=== PATIENT | female | born 1950 | race Asian ===

== ENCOUNTER → 2016-08-08 | Outpatient (CLI) | payer OTHER ==
[~2016-08-08] MED LIST: CHLO25TA PO; CIPR500T89 PO; FISH100049 PO; FLAG500T PO; IBUP600T26 PO; NATU400T PO; NORCOTAB PO; OMEP20CA3 PO; PERC5TAB6 PO; TYLE325T5 PO; VITA500C24 PO
--- NOTE | 2016-08-08 15:20 | REPMRS ---
Patient History The patient states she has not had a clinical breast exam in over a year. Patient is postmenopausal. No known family history of cancer. Digital Mammo Screening Bilat: August 08, 2016 - Exam #: [id number] Bilateral CC and MLO view(s) were taken. Technologist: Gwen Correa, Technologist Prior study comparison: May 15, 2015, bilateral digital mammo screening bilat performed at [facility]. September 24, 2013, digital bilateral screening mammo, performed at [facility]. October 12, 2010, digital bilateral screening mammo performed at [facility]. FINDINGS: There are scattered fibroglandular densities. There has been no change in the appearance of the mammogram from the prior studies. There is a mild amount of scattered fibroglandular density which is fairly symmetric. There is no interval development of dominant mass, architectural distortion, or clustered microcalcification suggestive of malignancy. ASSESSMENT: BI-RADS/ACR category 1 mammogram. Negative. Recommendation Routine screening mammogram in 1 year (for women over age 40). This mammogram was interpreted with the aid of an FDA-approved computer-aided dectection system. Electronically Signed By: Ariel Sharma MD 08/08/16 [id number]
== END ==
LOC: M RAD 14:48
PROVIDERS: ATTEND Internal Medicine
DX: Z12.31 Encounter for screening mammogram for malignant neoplasm of breast (principal)

== ENCOUNTER → 2017-04-09 | Outpatient (REF) | payer OTHER ==
[~2017-04-09] MED LIST changes: +CIPR-249 PO; -CIPR500T89 PO; +IBUP-1022 PO; -IBUP600T26 PO; +PERC5TAB12 PO; -PERC5TAB6 PO
== END ==
LOC: M LAB REF 17:21
PROVIDERS: ATTEND Nurse Practitioner Family
DX: R30.0 Dysuria (principal)

== ENCOUNTER 2017-05-29 09:30 | Day surgery (SDC) | payer OTHER ==
[2017-05-29] MEDS: NS 1,000 ML IV (10:00)
[2017-05-29] MEDS ORDERED: PROPOFOL 200 MG/20 ML VIAL As Ordered (10:53)
[2017-05-29] MEDS ORDERED: LIDOCAINE 2% INJ 100 MG/5 ML SDV (FOR ANES.) As Ordered (10:53)
== END 2017-05-29 12:15 | disposition home or self-care (01) ==
LOC: M OPP 09:30
DX: R10.30 Lower abdominal pain, unspecified (principal); R10.2 Pelvic and perineal pain; R19.4 Change in bowel habit; Q43.8 Other specified congenital malformations of intestine; R93.3 Abnormal findings on diagnostic imaging of other parts of digestive tract; R12 Heartburn; K29.70 Gastritis, unspecified, without bleeding; K21.9 Gastro-esophageal reflux disease without esophagitis; I10 Essential (primary) hypertension; Z78.0 Asymptomatic menopausal state; Z87.442 Personal history of urinary calculi; Z88.8 Allergy status to other drugs, medicaments and biological substances; Z79.899 Other long term (current) drug therapy
CPT/HCPCS: 45378

== ENCOUNTER → 2018-06-08 | Outpatient (CLI) | payer OTHER ==
[~2018-06-08] MED LIST changes: +RANI15TA PO
--- NOTE | 2018-06-08 14:01 | REPMRS ---
Patient History The patient states she has not had a clinical breast exam in over a year. No known family history of cancer. Digital Mammo Screening Bilat: June 08, 2018 - Exam #: [id number] Bilateral CC and MLO view(s) were taken. Technologist: Gwen Correa, Technologist Prior study comparison: August 08, 2016, bilateral digital mammo screening bilat performed at [facility]. May 15, 2015, bilateral digital mammo screening bilat performed at [facility]. FINDINGS: There are scattered fibroglandular densities. There has been no change in the appearance of the mammogram from the prior studies. There is a mild amount of residual fibroglandular tissue which is fairly symmetric. There is no interval development of dominant mass, architectural distortion, or clustered microcalcification suggestive of malignancy. There are scattered, small, benign calcifications of doubtful clinical significance. There are benign bilateral arterial calcifications noted. 3-D tomosynthesis shows no additional findings. No significant changes when compared with prior studies. Assessment: BI-RADS/ACR category 2 mammogram. Benign Findings. Recommendation Routine screening mammogram in 1 year (for women over age 40). This mammogram was interpreted with the aid of an FDA-approved computer-aided dectection system. A. Negative x-ray reports should not delay biopsy if a dominant or clinically suspicious mass is present. B. Four to eight percent of cancers are not identified by mammography. C. Adenosis and dense breast may obscure an underlying neoplasm. Electronically Signed By: Ariel White MD 06/08/18 2255
== END ==
LOC: M RAD 13:03
PROVIDERS: ATTEND Family Medicine
DX: Z12.31 Encounter for screening mammogram for malignant neoplasm of breast (principal)

== ENCOUNTER → 2020-02-18 | Outpatient (CLI) | payer MEDICARE, OTHER ==
[~2020-02-18] MED LIST changes: +CHLO125TA PO; -CHLO25TA PO; +HYDR-3715 PO; -NORCOTAB PO; +OMEP1CAP73 PO; -OMEP20CA3 PO
--- NOTE | 2020-02-18 12:44 | REP ---
INDICATION: CHEST PAIN, INCIDENTAL FINDING ON XRAY FILE ROOM. 6 mm nodule at the right lung base on recent chest x-ray. COMPARISON: Comparison chest CT study July 06, 2014.. TECHNIQUE: Helical scanning is acquired and 3 mm axial images re-formatted. Coronal and sagittal MPR images and coronal MIP images are generated and reviewed. 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 There is no significant pulmonary nodule or pulmonary mass lesion. No infiltrate is seen. There is minimal linear platelike atelectasis in the lingular segment of the left upper lobe. There is linear fibrosis versus atelectasis in the right middle lobe anteriorly. Lung vences are otherwise clear. No endobronchial lesion is seen. No hilar or mediastinal mass or adenopathy is observed. Some vascular calcification is seen. There are surgical clips in the gallbladder fossa. Normal adrenal glands are seen. The visualized upper abdominal structures are unremarkable. Bone window settings show degenerative spurring in the thoracic spine. No bony destructive lesion is seen. IMPRESSION: Cardiac enlargement. Unchanged. There is no evidence of pleural effusion or pulmonary edema. There is bibasilar linear platelike atelectasis. No pulmonary nodule or mass lesion seen. Otherwise no acute disease. <Electronically signed by Ariel Sharma > 02/18/20 [id number]
== END ==
LOC: M RAD 09:36
PROVIDERS: ATTEND Family Medicine
DX: J98.11 Atelectasis (principal); R91.1 Solitary pulmonary nodule

== ENCOUNTER → 2020-03-20 | Outpatient (CLI) | payer MEDICARE, OTHER ==
--- NOTE | 2020-03-21 08:12 | REPMRS ---
Patient History The patient states she has not had a clinical breast exam in over a year. No known family history of cancer. Digital Woman Screen Mammo: March 20, 2020 - Exam #: [id number] Bilateral CC and MLO view(s) were taken. Technologist: Christie Kong, Technologist Prior study comparison: June 08, 2018, bilateral digital mammo screening bilat, performed at [facility]. August 08, 2016, bilateral digital mammo screening bilat, performed at [facility]. May 15, 2015, bilateral digital mammo screening bilat, performed at [facility]. FINDINGS: There are scattered fibroglandular densities. The Volpara volumetric breast density category is:B. There has been no change in the appearance of the mammogram from the prior studies. There is a mild amount of scattered fibroglandular density which is fairly symmetric. There is no interval development of dominant mass, architectural distortion, or grouped microcalcification suggestive of malignancy. 3-D tomosynthesis shows no additional findings. Assessment: BI-RADS/ACR category 1 mammogram. Negative Mammogram. Recommendation Routine screening mammogram of both breasts in 1 year (for women over age 40). This patient's Lifetime Breast Cancer Risk is estimated at 4.5 %. This mammogram was interpreted with the aid of an FDA-approved computer-aided dectection system. Electronically Signed By: Ariel Sharma MD 03/21/20 0812
== END ==
LOC: M WHC 15:49
PROVIDERS: ATTEND Family Medicine
DX: Z12.31 Encounter for screening mammogram for malignant neoplasm of breast (principal)

== ENCOUNTER → 2020-05-02 | Outpatient (CLI) | payer MEDICARE, OTHER ==
--- NOTE | 2020-05-02 10:29 | REP ---
INDICATION: HTN COMPARISON: None TECHNIQUE: Real time singh scale ultrasound examination using curved array transducer followed by color Doppler evaluation of the renal vasculature. FINDINGS: The bilateral kidneys are normal in contour, size, echogenicity, and reniform shape without hydronephrosis, nephrolithiasis, cystic or renal mass lesion. Right kidney measures 10.0 x 5.3 x 5.0 cm. Left kidney measures 10.7 x 4.9 x 4.5 cm. Color Doppler evaluation is essentially normal. Peak aortic velocity: 53 centimeters/second RIGHT KIDNEY Renal arterial velocity: 82 centimeters/second Renal-aortic ratio: 1.5 Intrarenal resistive indices: 0.67-0.69 Intrarenal acceleration times: 0.034-0.044 LEFT KIDNEY Renal arterial velocity: 101 centimeters/second Renal-aortic ratio: 1.9 Intrarenal resistive indices: 0.64-0.66 Intrarenal acceleration times: 0.038-0.042 IMPRESSION: 1. Kidneys appear normal. 2. Doppler interrogation without sonographic evidence for renal arterial stenosis. <Electronically signed by Victor M Rangel > 05/02/20 [id number]
== END ==
LOC: M RAD 09:15
PROVIDERS: ATTEND Internal Medicine Cardiovascular Disease
DX: I11.9 Hypertensive heart disease without heart failure (principal); M54.9 Dorsalgia, unspecified; R09.89 Other specified symptoms and signs involving the circulatory and respiratory systems

== ENCOUNTER → 2021-03-23 | Outpatient (CLI) | payer MEDICARE, OTHER ==
--- NOTE | 2021-03-23 15:30 | REPMRS ---
Patient History The patient states she has not had a clinical breast exam in over a year. Patient is postmenopausal. No known family history of cancer. Pt stated she had her Covid vaccines and her Covid booster in her right arm, She didn't know the dates of her vaccines and didn't have her vaccine card with her.Patient states no breast complaints today. Patient has signed MRS History Sheet. Digital Woman Screen Mammo: March 23, 2021 - Exam #: [id number] Bilateral CC and MLO view(s) were taken. Technologist: RT Ashley Prior study comparison: March 20, 2020, bilateral digital woman screen mammo performed at [facility]. June 08, 2018, bilateral digital mammo screening bilat, performed at [facility]. FINDINGS: There are scattered fibroglandular densities. Screening. Digital screening (2D) mammography was performed bilaterally in the CC and MLO projections. Additionally, breast tomosynthesis (3D mammography) was performed bilaterally in the CC and MLO projections. Todays exam was compared to the prior exam/exams. By history, the patient has no complaints of a palpable breast abnormality or other significant breast complaints. The breasts are unchanged in size and shape. There are no marino-soft tissue densities or spiculated masses. There is no internal architectural distortion. Once again, stable benign appearing calcifications are seen.There are no suspicious marino-calcific clusters. Skin thickening or nipple retraction is not present. IMPRESSION: BI-RADS Category 2- Benign Findings. There is no evidence of malignant alteration of the breasts. Followup examination recommended in one year. The Volpara volumetric breast density category is B, there are scattered areas of fibroglandular densities. This mammogram [facility] FDA approved computer aided detection system for mammography. The lifetime Tyrer-Cuzick score is 4.2 % Negative x-ray reports should not delay surgical consultation if a dominant or clinically suspicious mass is present. Not all breast cancers can be identified by mammography. Therefore, we recommend that you continue to perform regular breast self-examination and physical examination and then promptly contact your physician of any concerns or changes. Adenosis and dense breasts may obscure an underlying neoplasm. Assessment: BI-RADS/ACR category 2 mammogram. Benign Findings. Recommendation Routine screening mammogram of both breasts in 1 year. Electronically Signed By: Tony Lovell DO 03/23/21 [id number]
== END ==
LOC: M WHC 13:11
PROVIDERS: ATTEND Emergency Medicine
DX: Z12.31 Encounter for screening mammogram for malignant neoplasm of breast (principal); R92.1 Mammographic calcification found on diagnostic imaging of breast

== ENCOUNTER 2021-05-23 16:46 | Emergency (ER) | payer MEDICARE, OTHER ==
[~2021-05-23] VITALS: Ht 144.8 cm; Wt 56.9 kg
[2021-05-23] MEDS ORDERED: MORPHINE 4 MG/ML 1ML VIAL/SYRINGE (J2270) IV ONE (19:15)
[2021-05-23] MEDS ORDERED: NS 1,000 ML IV ONE (19:15)
[2021-05-23 19:41] LABS: BASO # 0.1 10^3/uL (0.0-0.2); EOS # 0.3 10^3/uL (0.0-0.5); EOS % 4.6 % (0.0-3.0); HEMATOCRIT 44.4 % (36.0-47.0); HEMOGLOBIN 14.9 g/dl (12.0-15.5); LYMPH # 1.9 10^3/uL (1.5-5.0); LYMPH % 27.8 % (24.0-44.0); MEAN CORPUSCULAR HEMOGLOBIN 31.4 pg (27.0-33.0); MEAN CORPUSCULAR HGB CONC 33.6 g/dl (32.0-36.5); MEAN CORPUSCULAR VOLUME 93.7 fl (80.0-96.0); MONO % 14.4 % (2.0-8.0); NEUTROPHILS # 3.6 10^3/uL (1.5-8.5); NEUTROPHILS % 51.8 % (36.0-66.0); PLATELET COUNT, AUTOMATED 328 10^3/uL (150-450); RED BLOOD COUNT 4.74 10^6/uL (4.00-5.40); WHITE BLOOD COUNT 6.9 10^3/uL (4.0-10.0)
[2021-05-23 20:23] LABS: ALBUMIN 4.1 GM/DL (3.2-5.2); ALT/SGPT 21 U/L (12-78); BILIRUBIN,TOTAL 0.3 MG/DL (0.2-1.0); BLOOD UREA NITROGEN 17 MG/DL (7-18); CALCIUM LEVEL 9.3 MG/DL (8.8-10.2); CARBON DIOXIDE LEVEL 30 MEQ/L (21-32); CHLORIDE LEVEL 107 MEQ/L (98-107); CREATININE FOR GFR 0.72 MG/DL (0.55-1.30); GLOMERULAR FILTRATION RATE > 60.0 (>45); GLUCOSE, FASTING 119 MG/DL (70-100); LIPASE 114 U/L (73-393); POTASSIUM SERUM 3.9 MEQ/L (3.5-5.1); SODIUM LEVEL 140 MEQ/L (136-145)
[2021-05-23] MEDS ORDERED: ISOVUE-370 76% 100ML VIAL As Ordered ONE (20:28)
[2021-05-23 21:30] VITALS: BP 145/75
[2021-05-23] MEDS ORDERED: KETOROLAC 30 MG/ML 1ML VIAL IV ONE (21:50)
[2021-05-23] MEDS ORDERED: IBUP-1022 PO (21:52)
== END 2021-05-23 22:37 | disposition home or self-care (01) ==
LOC: M ED 16:46
DX: R10.2 Pelvic and perineal pain (principal); I10 Essential (primary) hypertension; K21.9 Gastro-esophageal reflux disease without esophagitis; K44.9 Diaphragmatic hernia without obstruction or gangrene; Z79.899 Other long term (current) drug therapy; Z88.8 Allergy status to other drugs, medicaments and biological substances
CPT/HCPCS: 74177; 80053; 83605; 83690; 85025; 87210; 96361; 96374; 96375; 99284; J1885; J2270; Q9967

== ENCOUNTER 2022-01-18 13:32 | Emergency (ER) | payer MEDICARE, OTHER ==
[~2022-01-18] VITALS: Ht 147.3 cm; Wt 57.9 kg
[2022-01-18] MEDS ORDERED: PERCOCET 5MG/325MG TAB PO ONE (15:05)
[2022-01-18] MEDS ORDERED: TOPIRAMATE (TopAMAX) 25 MG TAB PO ONE ×2 (16:05→16:40)
[2022-01-18] MEDS ORDERED: PILL CUTTER 1 EACH XX ONE (16:26)
[2022-01-18] MEDS ORDERED: TOPA1TAB PO (16:55)
[2022-01-18] MEDS ORDERED: TYLE650T38 PO (17:00)
[2022-01-18 17:19] VITALS: BP 168/82
== END 2022-01-18 17:20 | disposition home or self-care (01) ==
LOC: M ED 13:32
DX: F07.81 Postconcussional syndrome (principal); I10 Essential (primary) hypertension; K21.9 Gastro-esophageal reflux disease without esophagitis; Z87.442 Personal history of urinary calculi; Z79.899 Other long term (current) drug therapy; Z88.8 Allergy status to other drugs, medicaments and biological substances

== ENCOUNTER 2022-11-19 06:59 | Day surgery (SDC) | payer MEDICARE, OTHER ==
[~2022-11-19] VITALS: Ht 147.3 cm; Wt 55.3 kg
[~2022-11-19 06:59] MED LIST changes: +AMLO2.5T3 PO; +ATOR40TA75 PO; +FAMO1TAB11 PO; +LOSA50TA28 PO; +NS 1,000 ML IV ONE; +TOPA1TAB PO; +TYLE650T38 PO
[2022-11-19] MEDS ORDERED: propofoL 200 MG/20 ML VIAL As Ordered ONE ×2 (07:09→08:42)
[2022-11-19 08:58] VITALS: TEMP 96
[2022-11-19 09:16] VITALS: BP 116/63; O2SAT 92
== END 2022-11-19 09:24 | disposition home or self-care (01) ==
LOC: M OPP 06:59
PROVIDERS: ATTEND Internal Medicine Gastroenterology
DX: Z12.11 Encounter for screening for malignant neoplasm of colon (principal); Z86.010 Personal history of colon polyps; D12.3 Benign neoplasm of transverse colon; K63.5 Polyp of colon; K64.8 Other hemorrhoids; Z79.02 Long term (current) use of antithrombotics/antiplatelets; Z79.899 Other long term (current) drug therapy; Z88.1 Allergy status to other antibiotic agents; Z88.8 Allergy status to other drugs, medicaments and biological substances

== ENCOUNTER → 2023-03-27 | Outpatient (CLI) | payer MEDICARE, OTHER ==
[~2023-03-27] MED LIST changes: -NS 1,000 ML IV ONE
== END ==
LOC: M WHC 14:31
PROVIDERS: ATTEND Nurse Practitioner Family
DX: Z12.31 Encounter for screening mammogram for malignant neoplasm of breast (principal)

== ENCOUNTER → 2023-05-21 | Outpatient (CLI) | payer MEDICARE, OTHER | LOC: M WHC 14:38 | PROVIDERS: ATTEND Nurse Practitioner Family | DX: Z13.820 Encounter for screening for osteoporosis (principal); M85.851 Other specified disorders of bone density and structure, right thigh; M85.852 Other specified disorders of bone density and structure, left thigh ==

== ENCOUNTER → 2024-04-06 | Outpatient (CLI) | payer MEDICARE, OTHER ==
[2024-04-06 10:55] LABS: BASO % 0.5 % (0.0-1.0); EOS # 0.2 10^3/uL (0.0-0.5); EOS % 3.4 % (0.0-3.0); HEMATOCRIT 38.8 % (36.0-47.0); HEMOGLOBIN 13.4 g/dl (12.0-15.5); LYMPH # 1.7 10^3/uL (1.5-5.0); LYMPH % 30.9 % (24.0-44.0); MEAN CORPUSCULAR HEMOGLOBIN 32.1 pg (27.0-33.0); MEAN CORPUSCULAR HGB CONC 34.5 g/dl (32.0-36.5); MEAN CORPUSCULAR VOLUME 92.8 fl (80.0-96.0); MONO # 0.8 10^3/uL (0.0-0.8); MONO % 14.1 % (2.0-8.0); NEUTROPHILS # 2.8 10^3/uL (1.5-8.5); NEUTROPHILS % 50.4 % (36.0-66.0); PLATELET COUNT, AUTOMATED 274 10^3/uL (150-450); RED BLOOD COUNT 4.18 10^6/uL (4.00-5.40); WHITE BLOOD COUNT 5.6 10^3/uL (4.0-10.0)
[2024-04-06 11:23] LABS: ALBUMIN 3.8 G/DL (3.2-5.2); ALKALINE PHOSPHATASE 82 U/L (35-104); ALT/SGPT 26 U/L (7.0-40); AST/SGOT 24 U/L (<34); BLOOD UREA NITROGEN 17 MG/DL (9-23); CALCIUM LEVEL 9.6 MG/DL (8.3-10.6); CARBON DIOXIDE LEVEL 27 MMOL/L (20-31); CHLORIDE LEVEL 105 MMOL/L (98-107); CHOLESTEROL LEVEL 103 MG/DL (<200); CHOLESTEROL RISK RATIO 2.31 (<5); CREATININE FOR GFR 0.72 MG/DL (0.55-1.30); GLOMERULAR FILTRATION RATE > 60.0 (>39); GLUCOSE, FASTING 91 MG/DL (74-106); HDL CHOLESTEROL 44.5 MG/DL (>40); LDL CHOLESTEROL 30.1 MG/DL (<100); NON-HDL-C 58.5 MG/DL; POTASSIUM SERUM 4.2 MMOL/L (3.5-5.1); SODIUM LEVEL 139 MMOL/L (136-145); TOTAL PROTEIN 7.1 G/DL (5.7-8.2); TRIGLYCERIDES LEVEL 142 MG/DL (<150)
== END ==
LOC: M LAB 09:54
PROVIDERS: ATTEND Internal Medicine Cardiovascular Disease
DX: I11.9 Hypertensive heart disease without heart failure (principal); E78.2 Mixed hyperlipidemia

== ENCOUNTER → 2024-04-12 | Outpatient (CLI) | payer MEDICARE, OTHER | LOC: M WHC 16:38 | PROVIDERS: ATTEND Nurse Practitioner Family | DX: Z12.31 Encounter for screening mammogram for malignant neoplasm of breast (principal) ==

== ENCOUNTER → 2024-05-27 | Outpatient (CLI) | payer MEDICARE, OTHER | LOC: M CARPUL 15:04 | PROVIDERS: ATTEND Registered Nurse | DX: I35.8 Other nonrheumatic aortic valve disorders (principal); I08.8 Other rheumatic multiple valve diseases ==

== ENCOUNTER → 2024-09-03 | Outpatient (REF) | payer MEDICARE, OTHER | LOC: M SFHCDERM 18:00 | PROVIDERS: ATTEND Nurse Practitioner Family | DX: D48.9 Neoplasm of uncertain behavior, unspecified (principal); L82.1 Other seborrheic keratosis ==

== ENCOUNTER → 2024-11-22 | Outpatient (REF) | payer MEDICARE, OTHER ==
[2024-11-22 17:52] LABS: APPEARANCE, URINE CLOUDY (CLEAR); BACTERIA, URINE AUTO 1+ (NEGATIVE); BILIRUBIN, URINE AUTO NEGATIVE (NEGATIVE); BLOOD, URINE BLOOD NEGATIVE (NEGATIVE); GLUCOSE, URINE (UA) AUTO NEGATIVE (NEGATIVE); KETONE, URINE AUTO NEGATIVE (NEGATIVE); LEUKOCYTE ESTERASE, URINE AUTO 3+ (NEGATIVE); MUCUS, URINE SMALL (NEGATIVE); NITRITE, URINE AUTO POSITIVE (NEGATIVE); PROTEIN, URINE AUTO 1+ mg/dL (NEGATIVE); RBC, URINE AUTO 8 /HPF (0-3); SPECIFIC GRAVITY URINE AUTO 1.017 (1.002-1.035); SQUAMOUS EPITHELIAL CELL UR AU 0 /HPF (0-6); UROBILINOGEN, URINE AUTO 0.2 mg/dL (0.0-2.0); WBC, URINE AUTO TNTC /HPF (0-3)
== END ==
LOC: M LAB REF 17:06
PROVIDERS: ATTEND Physician Assistant Medical
DX: N39.0 Urinary tract infection, site not specified (principal)

== ENCOUNTER 2025-03-01 13:48 | Emergency (ER) | payer MEDICARE, OTHER ==
[~2025-03-01] VITALS: Ht 144.8 cm; Wt 57.0 kg
[~2025-03-01 13:48] MED LIST changes: -IBUP-1022 PO; +IBUP600T42 PO
[2025-03-01 14:37] LABS: BASO # 0.0 10^3/uL (0.0-0.2); BASO % 0.4 % (0.0-1.0); EOS # 0.2 10^3/uL (0.0-0.5); EOS % 2.5 % (0.0-3.0); LYMPH # 1.8 10^3/uL (1.5-5.0); LYMPH % 25.2 % (24.0-44.0); MONO # 1.0 10^3/uL (0.0-0.8); MONO % 14.3 % (2.0-8.0); NEUTROPHILS # 4.1 10^3/uL (1.5-8.5); NEUTROPHILS % 57.3 % (36.0-66.0); PLATELET COUNT, AUTOMATED 277 10^3/uL (150-450)
[2025-03-01 15:53] LABS: MAGNESIUM LEVEL 1.8 MG/DL (1.8-2.4)
[2025-03-01 15:57] LABS: FREE T4 1.08 NG/DL (0.89-1.76)
[2025-03-01 16:42] LABS: KETONE, URINE AUTO RFX NEGATIVE (NEGATIVE); LEUKOCYTE ESTERASE UR AUTO RFX NEGATIVE (NEGATIVE); NITRITE, URINE AUTO RFX NEGATIVE (NEGATIVE); RBC, URINE AUTO RFX 1 /HPF (0-3); SQUAM EPITHELIAL CELL UR AURFX 0 /HPF (0-6); WBC, URINE AUTO RFX 0 /HPF (0-3)
[2025-03-01] MEDS: NS (Normal Saline) 0.9% 1,000 ML IV ONE (16:50)
[2025-03-01] MEDS: MECLIZINE 25 MG TABLET PO ONE (16:50)
[2025-03-01] MEDS ORDERED: ISOVUE-370 76% 100 ML VIAL As Ordered ONE (18:51)
[2025-03-01] MEDS: ASPIRIN 81 MG CHEWABLE TABLET PO ONE (19:00)
[2025-03-01] MEDS ORDERED: MECL-86 PO (21:11)
[2025-03-01 21:24] VITALS: BP 189/78; TEMP 96.5; O2SAT 98
== END 2025-03-01 21:29 | disposition home or self-care (01) ==
LOC: M ED 13:48
DX: R42 Dizziness and giddiness (principal); I10 Essential (primary) hypertension
CPT/HCPCS: 70450; 70496; 70498; 70551; 71045; 80047; 81001; 83735; 84439; 84443; 85025; 93005; 99285; Q9967

== ENCOUNTER → 2025-04-18 | Outpatient (CLI) | payer MEDICARE, OTHER ==
[~2025-04-18] MED LIST changes: +MECL-86 PO
== END ==
LOC: M WHC 13:26
PROVIDERS: ATTEND General Practice
DX: Z12.31 Encounter for screening mammogram for malignant neoplasm of breast (principal)